=== PATIENT | male | born 2000 | race Caucasian/White ===

== ENCOUNTER 2018-11-08 01:26 | Outpatient (CLI) | payer OTHER | END 2018-11-08 01:27 | disposition critical access hospital (66) | LOC: EMS 01:26 | PROVIDERS: ATTEND Surgery | DX: S09.90XA Unspecified injury of head, initial encounter (principal); R41.82 Altered mental status, unspecified; W18.30XA Fall on same level, unspecified, initial encounter | CPT/HCPCS: A0425; A0427 ==

== ENCOUNTER 2018-11-08 01:42 | Emergency (ER) | payer OTHER ==
--- NOTE | 2018-11-08 02:00 | ED Physician Documentation ---
PD HPI HEAD INJURY - Stated complaint Stated Complaint: head lac, etoh - Chief complaint Chief Complaint: Trauma Hd/Nk - History obtained from History obtained from: Patient, EMS - History of Present Illness Mechanism of head injury: Fell Where head injury occurred: Street (He states he is visiting here for this past week and was out with friends. He does not typically drink every day or even frequently. He had 6 drinks or so and was feeling intoxicated. He does not remember falling down but reportedly from bystanders he lost balance and fell backwards and struck his head. EMS was called and they brought the patient here on a backboard with collar. Patient was awake and conversant on the way. There is no neurologic deficits. 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 No: LOC Symptoms worsen with: Palpation Contributing factors: Intoxicated. No: Anticoagulated Similar symptoms before: Has not had sx before Recently seen: Not recently seen Review of Systems Eyes: denies: Loss of vision, Decreased vision GI: denies: Nausea, Vomiting Musculoskeletal: reports: Neck pain. denies: Back pain Neurologic: reports: Headache (posteriorly at injury site). denies: Focal weakness, Numbness, Confused PD PAST MEDICAL HISTORY - Past Medical History Past Medical History: No - Past Surgical History Past Surgical History: Yes Ortho: ACL reconstruction - Present Medications Home Medications: Ambulatory Orders Medication Instructions Recorded Confirmed No Known Home Medications 11/08/18 11/08/18 - Allergies Allergies/Adverse Reactions: Allergies Allergy/AdvReac Type Severity Reaction Status Date / Time No Known Drug Allergies Allergy Verified 11/08/18 01:50 - Social History Does the pt smoke?: No Smoking Status: Never smoker Does the pt drink ETOH?: Yes Does the pt have substance abuse?: No - Immunizations Immunizations are current?: Yes PD ED PE NORMAL - Vitals Vital signs reviewed: Yes - General General: Alert and oriented X 3 (slight slurring of speech c/w intoxication. Answers questions appropriately. ), No acute distress, Well developed/nourished - HEENT HEENT: PERRL, EOMI, Other ([place] of head with some bleeding/dried blood. No obvious ongoing bleeding. ) - Neck Neck: Supple, no meningeal sign, No adenopathy, Other (mild tenderness mid cervical and left side of neck. No obvious deformity. ) - Cardiac Cardiac: RRR, No murmur - Respiratory Respiratory: Clear bilaterally, Other (no chestwall tendrness) - Abdomen Abdomen: Soft, Non tender - Back Back: No CVA TTP, No spinal TTP (exam with log roll) - Derm Derm: Normal color, Warm and dry - Neuro Neuro: Alert and oriented X 3, No motor deficit, No sensory deficit, Normal speech Eye Opening: Spontaneous Motor: Obeys Commands Verbal: Oriented GCS Score: 15 - Psych Psych: Normal mood Results - Vitals Vitals: Vital Signs - 24 hr 11/08/18 11/08/18 11/08/18 01:45 01:50 03:04 Temperature 37.8 C H Heart Rate 77 77 84 Respiratory 14 16 Rate Blood Pressure 131/88 H 123/80 O2 Saturation 98 99 Oxygen O2 Source Room air - Rads (name of study) cervical spine xray Radiology: Prelim report reviewed (no fractures nor deformities), EMP read contemporaneously, See rad report Procedures - Laceration (location) scalp occipital Length in cm: 1.5 Wound type: Irregular, Into subcut fat, Clean Anesthesia: Lidocaine 1% with epi Wound Preparation: Irrigated copiously NS, Wound explored, To the base. No: FB identified Skin layer closure: Paulette (6 total) PD MEDICAL DECISION MAKING - ED course Complexity details: re-evaluated patient (exam back of head after xrays. ), considered differential, d/w patient Departure - Departure Disposition: 01 Home, Self Care Clinical Impression: Fall from slip, trip, or stumble, Alcohol intoxication, Occipital scalp laceration Condition: Stable Record reviewed to determine appropriate education?: Yes Health Concerns: fall with head laceration Plan of Treatment: wound closure/ wound care Care Goals: wound healing Assessment: scalp laceration that is stapled. Normal neck xrays. No concussive symptoms. Instructions: ED Laceration Scalp Stitch Or Stap Comments: It is okay to wash and shower. Clean off the wound twice a day with soap and water, or peroxide and water. Apply some antibiotic ointment to it to keep it moist. Also to watch for signs of infection such as purulence, redness or increasing pain. Return to your primary care or the ER at the specified time for suture removal. Staple removal 10 to 12 days. Tylenol or ibuprofen as needed for pains. Discharge Date/Time: 11/08/18 03:06
[2018-11-08] MEDS ORDERED: LIDOCAINE MPF 1%-EPI 1:200000 30 ML VIAL SUBQ STA (02:38)
--- NOTE | 2018-11-08 02:48 | XRAY Report ---
Reason: fall and struck back of head; some neck pain Procedure Date: 11/08/2018 Accession Number: [id number] / [id number] Procedure: XR - Cervical Spine 2 View CPT Code: FULL RESULT: EXAM: CERVICAL SPINE RADIOGRAPHY EXAM DATE: 11/08/2018 02:32 AM. CLINICAL HISTORY: Fall and struck back of head; some neck pain. COMPARISONS: None. TECHNIQUE: 3 views. FINDINGS: Alignment: Normal. No spondylolisthesis or scoliosis. Bones: The cervical vertebral bodies and posterior elements are well visualized from the skull base through C7-T1. No fractures or bone lesions. Disks: Normal. Disk heights are maintained. Facets: No degenerative disease. Soft Tissues: Normal. No prevertebral soft tissue swelling. The visualized lung apices are clear. IMPRESSION: Normal cervical spine radiography. RAD[facility]
[2018-11-08] MEDS ORDERED: KETOROLAC 30 MG/ML VIAL IVP STA (02:52)
[2018-11-08 03:04] VITALS: BP 123/80
== END 2018-11-08 03:06 | disposition home or self-care (01) ==
LOC: ED 01:42
DX: S01.01XA Laceration without foreign body of scalp, initial encounter (principal); M54.2 Cervicalgia; W01.10XA Fall on same level from slipping, tripping and stumbling with subsequent striking against unspecified object, initial encounter; Y92.481 Parking lot as the place of occurrence of the external cause; F10.920 Alcohol use, unspecified with intoxication, uncomplicated
CPT/HCPCS: 12001; 72040; 96374; 99283; 99284

== ENCOUNTER 2019-07-10 18:37 | Outpatient (CLI) | payer OTHER | END 2019-07-10 23:59 | disposition critical access hospital (66) | LOC: EMS 18:37 | PROVIDERS: ATTEND Surgery | DX: R56.9 Unspecified convulsions (principal) | CPT/HCPCS: A0425; A0427 ==

== ENCOUNTER 2019-07-10 18:56 | Emergency (ER) | payer OTHER ==
[2019-07-10] MEDS ORDERED: ONDANSETRON 4 MG/2 ML VIAL IVP STA (19:10)
--- NOTE | 2019-07-10 19:13 | ED Physician Documentation ---
PD HPI SEIZURE - Stated complaint Stated Complaint: SZ - Chief complaint Chief Complaint: Neuro - History of Present Illness Timing - onset: How many minutes ago (30) Number of seizures: Single Description of seizure activity: Generalized Injury during seizure: None Associated symptoms: Nausea / vomiting - Additional information Additional information: Brought to the emergency department by EMS after having seizure-like activity at home. Patient's friends state that they were sitting on the couch Playing a video game and the patient suddenly stiffened up and began to twitch and foam at the mouth. The patient turned purple and the friend states he thought the patient had . He called 911 and was instructed to start compressions immediately. Medics state that when they arrived, they found compressions being performed on the patient and the patient awake and looking around. However, he seemed to be post ictal and was not fighting the compressions. The patient has been stable in route. He is now alert and oriented. Patient states that he has never had a seizure before. He did not have febrile seizures as a child. No recent head injury. No recent toxic exposures that he knows of. Patient does note that he did drink fairly heavily yesterday, but has not felt hung over or as though he was withdrawing today. Patient states he is certainly drank alcohol before without any seizures or other withdrawal symptoms. Patient states that he is feeling nauseated now but otherwise without complaints. He remembers sitting on the couch but does not remember feeling any unusual symptoms and does not prior the episode of seizure-like activity. Patient denies any family history of seizures. He has not had any vertigo or other concerning symptoms leading up to this event. No headaches. He states he has a mild headache right now. No other complaints at this time. Review of Systems Ten Systems: 10 systems reviewed and negative Constitutional: reports: Reviewed and negative Eyes: reports: Reviewed and negative Ears: reports: Reviewed and negative Nose: reports: Reviewed and negative Throat: reports: Reviewed and negative Cardiac: reports: Reviewed and negative Respiratory: reports: Reviewed and negative GI: reports: Nausea : reports: Reviewed and negative Skin: reports: Reviewed and negative Musculoskeletal: reports: Reviewed and negative Neurologic: reports: Seizure Psychiatric: reports: Reviewed and negative Endocrine: reports: Reviewed and negative Immunocompromised: reports: Reviewed and negative PD PAST MEDICAL HISTORY - Past Medical History Past Medical History: No Cardiovascular: None Respiratory: None Neuro: None Endocrine/Autoimmune: None GI: None : None HEENT: None Psych: None Musculoskeletal: None Derm: None - Past Surgical History Past Surgical History: Yes Ortho: ACL reconstruction - Present Medications Home Medications: Ambulatory Orders Medication Instructions Recorded Confirmed No Known Home Medications 11/08/18 11/08/18 - Allergies Allergies/Adverse Reactions: Allergies Allergy/AdvReac Type Severity Reaction Status Date / Time No Known Drug Allergies Allergy Verified 11/08/18 01:50 - Social History Does the pt smoke?: No Smoking Status: Never smoker Does the pt drink ETOH?: Yes Does the pt have substance abuse?: No - Immunizations Immunizations are current?: Yes - POLST Patient has POLST: No PD ED PE NORMAL - Vitals Vital signs reviewed: Yes - General General: Alert and oriented X 3, No acute distress - HEENT HEENT: PERRL - Neck Neck: Supple, no meningeal sign - Cardiac Cardiac: RRR, No murmur - Respiratory Respiratory: Clear bilaterally - Abdomen Abdomen: Soft, Non tender, Non distended - Derm Derm: Normal color, Warm and dry - Extremities Extremities: No deformity - Neuro Neuro: Alert and oriented X 3, patient coordinator 2-12 intact, No motor deficit, No sensory deficit - Psych Psych: Normal mood, Normal affect Results - Vitals Vitals: Vital Signs - 24 hr 07/10/19 07/10/19 19:00 20:14 Temperature 37 C Heart Rate 97 91 Respiratory 12 14 Rate Blood Pressure 116/94 H 128/100 H O2 Saturation 98 100 Oxygen O2 Source Room air - Labs Labs: Laboratory Tests 07/10/19 19:38 Urine Opiates Screen NEGATIVE Ur Oxycodone Screen NEGATIVE Urine Methadone Screen NEGATIVE Ur Propoxyphene Screen NEGATIVE Ur Barbiturates Screen NEGATIVE Ur Tricyclics Screen NEGATIVE Ur Phencyclidine Scrn NEGATIVE Ur Amphetamine Screen NEGATIVE U Methamphetamines Scrn NEGATIVE U Benzodiazepines Scrn NEGATIVE Urine Cocaine Screen NEGATIVE U Cannabinoids Screen NEGATIVE - Rads (name of study) CT head Radiology: Final report received, Discussed with rads, EMP read indepedently (Final radiologist impression: Negative nonenhanced head CT.), See rad report PD MEDICAL DECISION MAKING - ED course Complexity details: reviewed old records, reviewed results, re-evaluated patient, considered differential, d/w patient ED course: Patient was given 1 L bolus point and normal saline in the emergency department, as well as Zofran. He was worked up with labs and head CT, as well as urine drug screen. The patient was no longer postictal and was fairly well-appearing. His friends did arrive to be with him and were able to give some of the history, as they did witness the event.The patient remained stable throughout his stay in the emergency department. His work-up was unremarkable. I discussed with him that it is not clear why he has had seizure-like activity tonight. It is possible that this is related to the heavy drinking he did yesterday, though he is not had any other withdrawal symptoms. We have discussed that while this may be a one-time occurrence, it is important to follow-up with his primary care physician and with neurology to discuss having an EEG done. At this point in time, the patient will not be placed on any medications for seizure or otherwise. We have discussed the usual indications for return. Departure - Departure Disposition: 01 Home, Self Care Clinical Impression: Grand mal seizure Condition: Good Instructions: ED Seizure New Onset Unk Cause Comments: Your labs and head CT look good. It is not clear why you had seizure-like activity today. It is possible this is from the heavy drinking that you did yesterday and your body is rebounding from this. However, there may be another cause. It is possible that you will never have a seizure again; however, it is a good idea for you to follow-up with neurology to discuss having an EEG done to study your brain waves and look for possible triggers for future seizure activity. You should also follow-up in primary care to help facilitate this process. If you have further seizures, you will most likely need to be on seizure medication. However, this should be decided by your primary care physician and/or neurologist. You may call [phone] to reach the [facility] in [facility]. Discharge Date/Time: 07/10/19 20:41
[2019-07-10 19:41] LABS: MUDS CUTOFF CONCENTRATIONS CUTOFF CONC BELOW:
[2019-07-10 19:53] LABS: AMPHETAMINE SCREEN,URINE NEGATIVE (NEGATIVE); BENZODIAZEPINES SCREEN, URINE NEGATIVE (NEGATIVE); COCAINE SCREEN URINE NEGATIVE (NEGATIVE); METHADONE SCREEN, URINE NEGATIVE (NEGATIVE); METHAMPHETAMINES SCREEN, URINE NEGATIVE (NEGATIVE); OPIATE SCREEN, URINE NEGATIVE (NEGATIVE); OXYCODONE SCREEN, URINE NEGATIVE (NEGATIVE); PROPOXYPHENE SCREEN, URINE NEGATIVE (NEGATIVE); TRICYCLIC ANTIDEPRESSANT,URINE NEGATIVE (NEGATIVE)
[2019-07-10 20:15] VITALS: BP 128/100
--- NOTE | 2019-07-10 20:18 | CT Report ---
Reason: new-onset sz Procedure Date: 07/10/2019 Accession Number: [id number] / [id number] Procedure: CT - HEAD WO CPT Code: Final Report FULL RESULT: EXAM: CT HEAD EXAM DATE: 07/10/2019 07:47 PM. CLINICAL HISTORY: New-onset of seizure. COMPARISON: None. TECHNIQUE: Multiaxial CT images were obtained from the foramen magnum to the vertex. Reformats: Sagittal and coronal. IV contrast: None. In accordance with CT protocol optimization, one or more of the following dose reduction techniques were utilized for this exam: automated exposure control, adjustment of mA and/or KV based on patient size, or use of iterative reconstructive technique. FINDINGS: Parenchyma: No intraparenchymal hemorrhage. No evidence of mass, midline shift, or CT findings of infarction. Fields-white differentiation is distinct. Extraaxial Spaces: Normal for age. No subdural or epidural collections identified. Ventricles: Normal in size and position. Sinuses and Orbits: Imaged paranasal sinuses, orbits, and mastoids show no significant abnormality. Bones: No evidence of fracture or calvarial defect. Other: None. IMPRESSION: Negative nonenhanced head CT. RADIA
== END 2019-07-10 20:41 | disposition home or self-care (01) ==
LOC: EDUNIT# → ED 18:56
DX: G40.409 Other generalized epilepsy and epileptic syndromes, not intractable, without status epilepticus (principal)
CPT/HCPCS: 70450; 80306; 96374; 99284

== ENCOUNTER 2019-07-17 12:21 | Outpatient (CLI) | payer OTHER | END 2019-07-17 12:22 | disposition critical access hospital (66) | LOC: EMS 12:21 | PROVIDERS: ATTEND Surgery | DX: R56.9 Unspecified convulsions (principal) | CPT/HCPCS: A0425; A0429 ==

== ENCOUNTER 2019-07-17 12:45 | Emergency (ER) | payer OTHER ==
--- NOTE | 2019-07-17 13:01 | ED Physician Documentation ---
PD HPI SEIZURE - Stated complaint Stated Complaint: SZ - History obtained from History obtained from: Patient, EMS - History of Present Illness Timing - onset: Today (19-year-old gentleman with history of a new seizure disorder. Had his first seizure last week. There was a question if it was associated with alcohol. Drug screen at that time and head CT were negative. Had another grand mal seizure today and has recovered completely. It started while playing video games. 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 He is not on any antiepileptics.) Review of Systems Ten Systems: 10 systems reviewed and negative Constitutional: denies: Fever, Chills Throat: denies: Dental pain / toothache, Sore throat Cardiac: denies: Chest pain / pressure, Palpitations Respiratory: denies: Dyspnea, Cough PD PAST MEDICAL HISTORY - Past Medical History Cardiovascular: None Respiratory: None Neuro: None Endocrine/Autoimmune: None GI: None : None HEENT: None Psych: None Musculoskeletal: None Derm: None - Past Surgical History Past Surgical History: Yes Ortho: ACL reconstruction - Present Medications Home Medications: Ambulatory Orders Medication Instructions Recorded Confirmed Levetiracetam [Keppra] 750 mg PO BID #60 tablet 07/17/19 - Allergies Allergies/Adverse Reactions: Allergies Allergy/AdvReac Type Severity Reaction Status Date / Time No Known Drug Allergies Allergy Verified 11/08/18 01:50 - Social History Does the pt smoke?: No Smoking Status: Never smoker Does the pt drink ETOH?: Yes Does the pt have substance abuse?: No - Immunizations Immunizations are current?: Yes - POLST Patient has POLST: No PD ED PE NORMAL - Vitals Vital signs reviewed: Yes - General General: Alert and oriented X 3, No acute distress - HEENT HEENT: PERRL, EOMI, Other (There is a small abrasion on the right side of the tongue without other evidence of head injury.) - Neck Neck: Supple, no meningeal sign, No bony TTP - Cardiac Cardiac: RRR, No murmur - Respiratory Respiratory: No respiratory distress, Clear bilaterally - Abdomen Abdomen: Normal bowel sounds, Soft, Non tender - Back Back: No CVA TTP, No spinal TTP - Derm Derm: Normal color, Warm and dry - Extremities Extremities: No edema, No calf tenderness / cord - Neuro Neuro: Alert and oriented X 3, news assistant 2-12 intact, No motor deficit, No sensory deficit, Normal speech Results - Vitals Vitals: Vital Signs - 24 hr 07/17/19 12:50 Temperature 36.8 C Heart Rate 95 Respiratory 18 Rate Blood Pressure 124/87 H O2 Saturation 98 Oxygen O2 Source Room air - EKG (time done) 1314 Rate: Rate (enter#) (93) Rhythm: NSR [place]: Normal Intervals: Normal [place]. No: Prolonged QT QRS: Normal Ischemia: ST elevation c/w repol. No: ST elevation c/w ischemia, ST depression Computer interpretation: Agree with computer - Labs Labs: Laboratory Tests 07/17/19 07/17/19 13:18 13:18 WBC 9.8 RBC 5.06 Hgb 16.9 Hct 47.1 MCV 93.1 MCH 33.4 H MCHC 35.9 RDW 12.1 Plt Count 298 MPV 10.1 Neut # (Auto) 7.3 H Lymph # (Auto) 1.2 L [place] # (Auto) 0.8 Eos # (Auto) 0.3 Baso # (Auto) 0.1 Absolute Nucleated RBC 0.00 Nucleated RBC % 0.0 Sodium 134 L Potassium 4.3 Chloride 100 L Carbon Dioxide 23 Anion Gap 11.0 BUN 14 Creatinine 0.9 Estimated GFR (MDRD) 107 Glucose 83 Calcium 9.6 Total Bilirubin 0.9 AST 42 ALT 32 Alkaline Phosphatase 70 Total Protein 8.3 H Albumin 5.1 Globulin 3.2 Albumin/Globulin Ratio 1.6 Lipase 27 Ethyl Alcohol < 5.0 PD MEDICAL DECISION MAKING - ED course ED course: 19-year-old gentleman with a second seizure in as many weeks. Case was discussed by phone with the on-call neurologist at the [facility]. She recommended starting 750 mg of Keppra twice daily pending follow-up. Departure - Departure Disposition: 01 Home, Self Care Clinical Impression: Grand mal seizure Condition: Good Record reviewed to determine appropriate education?: Yes Instructions: ED Seizure Recurrent Prescriptions: Levetiracetam [Keppra] 750 mg PO BID #60 tablet Comments: The on-call neurologist at the [facility] recommended starting the seizure medication pending your follow-up next week. Return for new or worsening symptoms. No driving for at least 6 months.
[2019-07-17 13:02] VITALS: BP 124/87
[2019-07-17 13:40] LABS: BASOPHILS # (AUTO) 0.1 10^3/uL (0.0-0.1); BASOPHILS % (AUTO) 0.6 %; EOSINOPHILS # (AUTO) 0.3 10^3/uL (0.0-0.7); EOSINOPHILS % (AUTO) 2.7 %; HGB - HEMOGLOBIN 16.9 g/dL (14.0-18.0); LYMPHOCYTES # (AUTO) 1.2 10^3/uL (1.5-3.5); LYMPHOCYTES % (AUTO) 12.5 %; MEAN CORPUSCULAR HEMOGLOBIN 33.4 pg (27.0-31.0); MEAN CORPUSCULAR HGB CONC 35.9 g/dL (32.0-36.0); MEAN CORPUSCULAR VOLUME 93.1 fL (80.0-94.0); MEAN PLATELET VOLUME 10.1 fL (7.4-11.4); MONOCYTES # (AUTO) 0.8 10^3/uL (0.0-1.0); NEUTROPHILS # (AUTO) 7.3 10^3/uL (1.5-6.6); NEUTROPHILS % (AUTO) 74.9 %; PLT - PLATELET COUNT 298 10^3/uL (130-450); RED BLOOD COUNT 5.06 10^6/uL (4.70-6.10); RED CELL DISTRIBUTION WIDTH 12.1 % (12.0-15.0); WHITE BLOOD COUNT 9.8 x10^3/uL (4.8-10.8)
[2019-07-17 13:46] LABS: ALBUMIN 5.1 g/dL (3.2-5.5); ALBUMIN/GLOBULIN RATIO 1.6 (1.0-2.2); ALKALINE PHOSPHATASE 70 IU/L (42-121); ALT ALANINE AMINOTRANSFERASE 32 IU/L (10-60); AST ASPARTATE AMINOTRANSFERASE 42 IU/L (10-42); BILIRUBIN,TOTAL 0.9 mg/dL (0.2-1.0); BUN - BLOOD UREA NITROGEN 14 mg/dL (6-20); CALCIUM 9.6 mg/dL (8.5-10.3); CARBON DIOXIDE - CO2 23 mmol/L (21-32); CHLORIDE 100 mmol/L (101-111); CREATININE 0.9 mg/dL (0.6-1.2); GFR - MDRD 107 (>89); GLUCOSE 83 mg/dL (70-100); LIPASE 27 U/L (22-51); SODIUM 134 mmol/L (135-145); TOTAL PROTEIN 8.3 g/dL (6.7-8.2)
== END 2019-07-17 14:49 | disposition home or self-care (01) ==
LOC: EDUNIT# → ED 12:45
DX: G40.409 Other generalized epilepsy and epileptic syndromes, not intractable, without status epilepticus (principal)
CPT/HCPCS: 36415; 80053; 80320; 83690; 85025; 93005; 99283; 99285

== ENCOUNTER 2019-08-28 14:22 | Outpatient (CLI) | payer OTHER | END 2019-08-28 14:23 | disposition EMS.NT | LOC: EMS 14:22 | PROVIDERS: ATTEND Surgery | DX: R56.9 Unspecified convulsions (principal) ==

== ENCOUNTER 2019-08-28 15:18 | Emergency (ER) | payer OTHER ==
[2019-08-28 15:24] VITALS: BP 120/74
--- NOTE | 2019-08-28 15:31 | ED Physician Documentation ---
PD HPI FOCAL NEURO - Stated complaint Stated Complaint: SEIZURE - Chief complaint Chief Complaint: Neuro - History obtained from History obtained from: Patient (19-year-old gentleman with recent onset of a new seizure disorder. His first seizure was just a couple of months ago. He was seen twice after that and had an appointment with a neurologist. On his last visit here which was about a month and a half ago he was started on Keppra 750 mg twice a day after talking with his neurologist. While he was taking that he will did not have any seizures but ran out of the medication about 2 weeks ago. He had not been able to follow-up with the neurologist physically because of the coronavirus issues. Today he had a seizure while playing video games. He has not been driving and understands he should not drive) Review of Systems Constitutional: denies: Fever, Chills Nose: denies: Rhinorrhea / runny nose Throat: denies: Sore throat Cardiac: denies: Chest pain / pressure, Palpitations Respiratory: denies: Dyspnea PD PAST MEDICAL HISTORY - Past Medical History Cardiovascular: None Respiratory: None Neuro: None Endocrine/Autoimmune: None GI: None : None HEENT: None Psych: None Musculoskeletal: None Derm: None - Past Surgical History Past Surgical History: Yes Ortho: ACL reconstruction - Present Medications Home Medications: Ambulatory Orders Medication Instructions Recorded Confirmed Levetiracetam [Keppra] 750 mg PO BID #60 tablet 07/17/19 Levetiracetam [Keppra] 750 mg PO BID #120 tablet 08/28/19 - Allergies Allergies/Adverse Reactions: Allergies Allergy/AdvReac Type Severity Reaction Status Date / Time No Known Drug Allergies Allergy Verified 08/28/19 15:24 - Social History Does the pt smoke?: No Smoking Status: Never smoker Does the pt drink ETOH?: Yes Does the pt have substance abuse?: No - Immunizations Immunizations are current?: Yes - POLST Patient has POLST: No PD ED PE NORMAL - Vitals Vital signs reviewed: Yes - General General: Alert and oriented X 3, No acute distress - HEENT HEENT: PERRL, EOMI - Neuro Neuro: Alert and oriented X 3, 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 2-12 intact, No motor deficit, No sensory deficit, Normal speech - Psych Psych: Normal mood, Normal affect Results - Vitals Vitals: Vital Signs - 24 hr 08/28/19 15:20 Temperature 37 C Heart Rate 105 H Respiratory 18 Rate Blood Pressure 120/74 O2 Saturation 97 Oxygen O2 Source Room air PD MEDICAL DECISION MAKING - ED course Complexity details: reviewed old records (Note made that he did have a head CT here about a little over a month and a half ago which was unremarkable.) ED course: This is a young man with a known seizure disorder is being controlled with Keppra but ran out and has poor access to follow-up due to the coronavirus epidemic. His Keppra is refilled for 2 months since we do not know when he will be able to see his neurologist. Departure - Departure Disposition: Home, Self Care Clinical Impression: Grand mal seizure Condition: Good Record reviewed to determine appropriate education?: Yes Instructions: ED Seizure New Onset Unk Cause Prescriptions: Levetiracetam [Keppra] 750 mg PO BID #120 tablet Comments: It is imperative to get a good night sleep every night, you cannot drive until 6 months of past seizure-free or neurologist has cleared you to do so. Continue your efforts to try to follow-up with the neurologist. That said if you are getting close to running out of the antiseizure medication can [place] a [place] Return for new or worsening symptoms.
[2019-08-28] MEDS: levETIRAcetam 250 MG TABLET PO STA (15:34)
== END 2019-08-28 15:45 | disposition home or self-care (01) ==
LOC: ED 15:18
DX: G40.409 Other generalized epilepsy and epileptic syndromes, not intractable, without status epilepticus (principal); T42.6X6A Underdosing of other antiepileptic and sedative-hypnotic drugs, initial encounter; Z91.138 Patient's unintentional underdosing of medication regimen for other reason
CPT/HCPCS: 99282; 99283; A9270

== ENCOUNTER 2019-11-20 10:27 | Emergency (ER) | payer OTHER ==
--- NOTE | 2019-11-20 14:12 | ED Physician Documentation ---
PD HPI SEIZURE - Stated complaint Stated Complaint: SEIZURE - Chief complaint Chief Complaint: Neuro - History obtained from History obtained from: Patient, Family - History of Present Illness Witnessed: Unwitnessed Number of seizures: Single, Lasted minutes Description of seizure activity: Generalized Injury during seizure: None Associated symptoms: None History of seizures: Known seizure disorder Contributing factors: No: Off meds, Out of meds, Changed meds, Low blood sugar, Head injury, Substance abuse, EtOH withdrawal, Benzo withdrawal, Overdose, Fever, Sleep deprivation Similar symptoms before: Diagnosis (seizure) Recently seen: Not recently seen - Additional information Additional information: 19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 He states that he did not feel quite right earlier in the day about a half an hour before that happened but he did not have a specific aura. He did not injure himself when this occurred he is fairly certain he had a seizure because she has a lapse in memory and found himself on the floor. He states that he has had 3 other seizures and he has been on Keppra and states he has been taking his medicine. He did go in to see a neurologist after having a seizure and he has not been in for his follow-up EEG. He denies any current illness he denies any sleep deprivation or excessive stress at work. Review of Systems Constitutional: denies: Fever Eyes: denies: Decreased vision Ears: denies: Ear pain Nose: denies: Rhinorrhea / runny nose, Congestion Throat: denies: Sore throat Cardiac: denies: Chest pain / pressure, Palpitations Respiratory: denies: Dyspnea, Cough GI: denies: Vomiting : denies: Dysuria PD PAST MEDICAL HISTORY - Past Medical History Cardiovascular: None Respiratory: None Neuro: None Endocrine/Autoimmune: None GI: None : None HEENT: None Psych: None Musculoskeletal: None Derm: None - Past Surgical History Past Surgical History: Yes Ortho: ACL reconstruction - Present Medications Home Medications: Ambulatory Orders Medication Instructions Recorded Confirmed Levetiracetam [Keppra] 750 mg PO BID #60 tablet 07/17/19 Levetiracetam [Keppra] 750 mg PO BID #120 tablet 08/28/19 - Allergies Allergies/Adverse Reactions: Allergies Allergy/AdvReac Type Severity Reaction Status Date / Time No Known Drug Allergies Allergy Verified 08/28/19 15:24 - Social History Does the pt smoke?: No Smoking Status: Never smoker Does the pt drink ETOH?: Yes Does the pt have substance abuse?: No - Immunizations Immunizations are current?: Yes - POLST Patient has POLST: No PD ED PE NORMAL - Vitals Vital signs reviewed: Yes (tachy) - General General: Alert and oriented X 3, No acute distress, Well developed/nourished - HEENT HEENT: Atraumatic, PERRL, EOMI, Pharynx benign - Neck Neck: Supple, no meningeal sign, No bony TTP - Cardiac Cardiac: RRR, No murmur - Respiratory Respiratory: No respiratory distress, Clear bilaterally - Back Back: No CVA TTP, No spinal TTP - Derm Derm: Normal color, Warm and dry, No rash - Extremities Extremities: No deformity, No edema, No calf tenderness / cord - Neuro Neuro: Alert and oriented X 3, button and 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 maker 2-12 intact, No motor deficit, No sensory deficit, Normal speech Eye Opening: Spontaneous Motor: Obeys Commands Verbal: Oriented GCS Score: 15 - Psych Psych: Normal mood, Normal affect Results - Vitals Vitals: Vital Signs - 24 hr 11/20/19 11/20/19 11/20/19 10:31 14:00 16:00 Temperature 36.9 C Heart Rate 107 H 69 73 Respiratory 16 20 20 Rate Blood Pressure 127/91 H 124/89 H 113/61 O2 Saturation 100 99 99 11/20/19 16:29 Temperature 37.1 C Heart Rate 70 Respiratory 18 Rate Blood Pressure 122/75 O2 Saturation 100 Oxygen O2 Source Room air - Labs Labs: Laboratory Tests 11/20/19 11/20/19 11/20/19 14:27 14:27 14:31 WBC 14.8 H RBC 4.92 Hgb 16.3 Hct 45.3 MCV 92.1 MCH 33.1 H MCHC 36.0 RDW 11.8 L Plt Count 285 MPV 9.6 Neut # (Auto) 12.6 H Lymph # (Auto) 1.2 L [place] # (Auto) 0.9 Eos # (Auto) 0.0 Baso # (Auto) 0.1 Absolute Nucleated RBC 0.00 Nucleated RBC % 0.0 Sodium Potassium Chloride Carbon Dioxide Anion Gap BUN Creatinine Estimated GFR (MDRD) Glucose Calcium Total Bilirubin AST ALT Alkaline Phosphatase Total Creatine Kinase Total Protein Albumin Globulin Albumin/Globulin Ratio Lipase Urine Color YELLOW Urine Clarity CLOUDY Urine pH 5.5 Ur Specific [place] >=1.030 H Urine Protein NEGATIVE Urine Glucose (UA) NEGATIVE Urine Ketones NEGATIVE Urine Occult Blood NEGATIVE Urine Nitrite NEGATIVE Urine Bilirubin NEGATIVE Urine Urobilinogen 0.2 (NORMAL) Ur Leukocyte Esterase NEGATIVE Urine RBC 0-5 Urine WBC 0-3 Ur Squamous Epith Cells NONE SEEN Amorphous Sediment Marked Urine Bacteria None Seen Ur Microscopic Review INDICATED Urine Culture Comments NOT INDICATED Urine Opiates Screen NEGATIVE Ur Oxycodone Screen NEGATIVE Urine Methadone Screen NEGATIVE Ur Propoxyphene Screen NEGATIVE Ur Barbiturates Screen NEGATIVE Ur Tricyclics Screen NEGATIVE Ur Phencyclidine Scrn NEGATIVE Ur Amphetamine Screen NEGATIVE U Methamphetamines Scrn NEGATIVE U Benzodiazepines Scrn NEGATIVE Urine Cocaine Screen NEGATIVE U Cannabinoids Screen NEGATIVE 11/20/19 14:31 WBC RBC Hgb Hct MCV MCH MCHC RDW Plt Count MPV Neut # (Auto) Lymph # (Auto) [place] # (Auto) Eos # (Auto) Baso # (Auto) Absolute Nucleated RBC Nucleated RBC % Sodium 139 Potassium 4.0 Chloride 102 Carbon Dioxide 27 Anion Gap 10.0 BUN 16 Creatinine 1.0 Estimated GFR (MDRD) 94 Glucose 95 Calcium 9.5 Total Bilirubin 1.0 AST 25 ALT 22 Alkaline Phosphatase 77 Total Creatine Kinase 192 Total Protein 8.1 Albumin 5.4 Globulin 2.7 Albumin/Globulin Ratio 2.0 Lipase 26 Urine Color Urine Clarity Urine pH Ur Specific [place] Urine Protein Urine Glucose (UA) Urine Ketones Urine Occult Blood Urine Nitrite Urine Bilirubin Urine Urobilinogen Ur Leukocyte Esterase Urine RBC Urine WBC Ur Squamous Epith Cells Amorphous Sediment Urine Bacteria Ur Microscopic Review Urine Culture Comments Urine Opiates Screen Ur Oxycodone Screen Urine Methadone Screen Ur Propoxyphene Screen Ur Barbiturates Screen Ur Tricyclics Screen Ur Phencyclidine Scrn Ur Amphetamine Screen U Methamphetamines Scrn U Benzodiazepines Scrn Urine Cocaine Screen U Cannabinoids Screen PD MEDICAL DECISION MAKING - ED course Complexity details: reviewed old records, reviewed results, re-evaluated patient, considered differential, d/w patient, d/w family ED course: 19-year-old male has had another seizure and there are no obvious precipitants to this. He denies any infection sleep deprivation trauma and on physical exam no specific findings. I question the patient about his alcohol use and he does indicate that he did use alcohol and that he had been using alcohol quite a bit before his first seizure and I have asked him to explore the possibility of alcohol withdrawal seizure as a potential for his seizure disorder. I have asked him to share openly with his neurologist his alcohol use. Today we will not make changes to the patient's plan. Departure - Departure Disposition: 01 Home, Self Care Clinical Impression: Seizure Condition: Stable Instructions: ED Seizure Recurrent Follow-Up: Aruna García MD [Primary Care Provider] - Discharge Date/Time: 11/20/19 16:29
[2019-11-20 14:41] LABS: BASOPHILS # (AUTO) 0.1 10^3/uL (0.0-0.1); BASOPHILS % (AUTO) 0.3 %; EOSINOPHILS % (AUTO) 0.3 %; HGB - HEMOGLOBIN 16.3 g/dL (14.0-18.0); LYMPHOCYTES # (AUTO) 1.2 10^3/uL (1.5-3.5); LYMPHOCYTES % (AUTO) 8.2 %; MEAN CORPUSCULAR HEMOGLOBIN 33.1 pg (27.0-31.0); MEAN CORPUSCULAR VOLUME 92.1 fL (80.0-94.0); MEAN PLATELET VOLUME 9.6 fL (7.4-11.4); MONOCYTES # (AUTO) 0.9 10^3/uL (0.0-1.0); MONOCYTES % (AUTO) 5.8 %; NEUTROPHILS # (AUTO) 12.6 10^3/uL (1.5-6.6); NEUTROPHILS % (AUTO) 84.8 %; PLT - PLATELET COUNT 285 10^3/uL (130-450); RED BLOOD COUNT 4.92 10^6/uL (4.70-6.10); RED CELL DISTRIBUTION WIDTH 11.8 % (12.0-15.0); WHITE BLOOD COUNT 14.8 x10^3/uL (4.8-10.8)
[2019-11-20 14:56] LABS: ALBUMIN 5.4 g/dL (3.2-5.5); CALCIUM 9.5 mg/dL (8.5-10.3); TOTAL PROTEIN 8.1 g/dL (6.7-8.2)
[2019-11-20 15:40] LABS: BILIRUBIN,URINE NEGATIVE (NEGATIVE); GLUCOSE, URINE (UA) NEGATIVE (NEGATIVE); KETONES,URINE (UA) NEGATIVE (NEGATIVE); LEUKOCYTE ESTERASE, URINE NEGATIVE (NEGATIVE); NITRITE,URINE NEGATIVE (NEGATIVE); OCCULT BLOOD,URINE NEGATIVE (NEGATIVE); PH,URINE 5.5 PH (5.0-7.5); PROTEIN,URINE NEGATIVE (NEGATIVE); UROBILINOGEN,URINE 0.2 (NORMAL) E.U./dL (NORMAL)
[2019-11-20 15:45] LABS: CLARITY,URINE CLOUDY (CLEAR)
[2019-11-20 15:46] LABS: AMORPHOUS SEDIMENT,UR Marked /LPF; BACTERIA,URINE None Seen /HPF (None Seen); RBC,URINE 0-5 /HPF (0-5); SQUAMOUS EPITHELIAL CELL,UR NONE SEEN (<= Few)
[2019-11-20 15:57] LABS: MUDS CUTOFF CONCENTRATIONS CUTOFF CONC BELOW:
[2019-11-20 16:10] LABS: AMPHETAMINE SCREEN,URINE NEGATIVE (NEGATIVE); BENZODIAZEPINES SCREEN, URINE NEGATIVE (NEGATIVE); COCAINE SCREEN URINE NEGATIVE (NEGATIVE); METHADONE SCREEN, URINE NEGATIVE (NEGATIVE); METHAMPHETAMINES SCREEN, URINE NEGATIVE (NEGATIVE); OPIATE SCREEN, URINE NEGATIVE (NEGATIVE); OXYCODONE SCREEN, URINE NEGATIVE (NEGATIVE); PROPOXYPHENE SCREEN, URINE NEGATIVE (NEGATIVE); TRICYCLIC ANTIDEPRESSANT,URINE NEGATIVE (NEGATIVE)
[2019-11-20 16:30] VITALS: BP 122/75
== END 2019-11-20 16:29 | disposition home or self-care (01) ==
LOC: ED 10:27
DX: G40.909 Epilepsy, unspecified, not intractable, without status epilepticus (principal)
CPT/HCPCS: 36415; 80053; 80177; 80306; 81001; 81003; 82550; 83690; 85025; 87086; 99283; 99284

== ENCOUNTER 2020-01-15 11:29 | Outpatient (CLI) | payer OTHER | END 2020-01-15 11:30 | disposition critical access hospital (66) | LOC: EMS 11:29 | PROVIDERS: ATTEND Surgery | DX: R56.9 Unspecified convulsions (principal) | CPT/HCPCS: A0425; A0427 ==

== ENCOUNTER 2020-01-15 11:59 | Emergency (ER) | payer OTHER ==
--- NOTE | 2020-01-15 12:32 | ED Physician Documentation ---
PD HPI SEIZURE - Stated complaint Stated Complaint: SZ - Chief complaint Chief Complaint: Neuro - History obtained from History obtained from: Patient, EMS - History of Present Illness Timing - onset: Today Witnessed: Witnessed Number of seizures: Single, Lasted - seconds (30) Description of seizure activity: Generalized, Tonic clonic Injury during seizure: None Pain level max: 0 Pain level now: 0 Associated symptoms: None. No: Headache, Vision changes, Chest pain, Palpitations, Diaphoresis, Dyspnea, Nausea / vomiting History of seizures: Known seizure disorder - Additional information Additional information: patient with known seizure disorder, takes keppra 500mg PO BID. Sees neurology at [facility]. No missed doses. Still has seizures approx 1x per month. No recent illness. No sleep deprivation. No fevers. Nothing makes it better or worse. Review of Systems Ten Systems: 10 systems reviewed and negative Constitutional: denies: Fever, Chills Nose: denies: Rhinorrhea / runny nose, Congestion Respiratory: denies: Cough GI: reports: Vomiting (after the seizure had emesis. now feels normal.). denies: Nausea, Diarrhea : denies: Dysuria Skin: denies: Rash Musculoskeletal: denies: Neck pain, Back pain Neurologic: denies: Headache, Head injury PD PAST MEDICAL HISTORY - Past Medical History Cardiovascular: None Respiratory: None Neuro: None Endocrine/Autoimmune: None GI: None : None HEENT: None Psych: None Musculoskeletal: None Derm: None - Past Surgical History Past Surgical History: Yes Ortho: ACL reconstruction - Present Medications Home Medications: Ambulatory Orders Medication Instructions Recorded Confirmed Levetiracetam [Keppra] 500 mg PO BID 01/15/20 01/15/20 Levetiracetam [Keppra] 750 mg PO BID #60 tablet 01/15/20 - Allergies Allergies/Adverse Reactions: Allergies Allergy/AdvReac Type Severity Reaction Status Date / Time No Known Drug Allergies Allergy Verified 08/28/19 15:24 - Social History Does the pt smoke?: No Smoking Status: Never smoker Does the pt drink ETOH?: Yes Does the pt have substance abuse?: No - Immunizations Immunizations are current?: Yes - POLST Patient has POLST: No PD ED PE NORMAL - Vitals Vital signs reviewed: Yes - General General: Alert and oriented X 3, No acute distress - HEENT HEENT: Moist mucous membranes - Neck Neck: Supple, no meningeal sign - Cardiac Cardiac: RRR - Respiratory Respiratory: No respiratory distress, Clear bilaterally - Derm Derm: Warm and dry - Extremities Extremities: No deformity, No edema, No calf tenderness / cord - Neuro Neuro: Alert and oriented X 3, record systems analyst 2-12 intact, No motor deficit, No sensory deficit, Normal speech - Psych Psych: Normal mood, Normal affect Results - Vitals Vitals: Vital Signs - 24 hr 01/15/20 12:05 Temperature 36.7 C Heart Rate 88 Respiratory 14 Rate Blood Pressure 126/79 O2 Saturation 97 Oxygen O2 Source Room air PD MEDICAL DECISION MAKING - ED course Complexity details: considered differential, d/w patient ED course: With a known recurrent seizure disorder. He is only on Keppra 500 mg twice a day. Increase this to 750 twice a day, will likely need to be increased further. [place]. Patient counseled regarding signs and symptoms for which I believe and urgent re-evaluation would be necessary. Patient with good understanding of and agreement to plan and is comfortable going home at this time This document was made in part using voice recognition software. While efforts are made to proofread this document, sound alike and grammatical errors may occur. No injuries. No indication for lab work at this time Departure - Departure Disposition: 01 Home, Self Care Clinical Impression: Seizure Condition: Good Instructions: ED Seizure Recurrent Follow-Up: LAURIE Jay [Provider Group] - Within 3 Days Prescriptions: Levetiracetam [Keppra] 750 mg PO BID #60 tablet Comments: We will increase your keppra to 750mg twice a day. Follow up with your doctor t his week, they may want to increase your keppra again in 2 weeks to 1000mg twice a day. Return if you worsen.
[2020-01-15 12:55] VITALS: BP 129/78
== END 2020-01-15 13:28 | disposition home or self-care (01) ==
LOC: ED 11:59
DX: R56.9 Unspecified convulsions (principal)
CPT/HCPCS: 99282; 99284

== ENCOUNTER 2020-02-02 16:41 | Outpatient (CLI) | payer OTHER ==
--- NOTE | 2020-02-02 18:12 | MRI Report ---
PROCEDURE: Brain W/WO INDICATIONS: SEIZURE, ALTERED MENTAL STATUS CONTRAST: IV CONTRAST: Gadavist ml: 7 TECHNIQUE: Noncontrast axial T1 spin echo, axial T2 fast spin echo, sagittal and axial FLAIR, coronal T2 fast sp in echo, axial gradient echo, axial diffusion and ADC through the brain. In this patient, thin secti on T2-weighted images were performed through the hippocampal regions. After the administration of con trast, axial and coronal T1 spin echo with fat saturation through the brain. COMPARISON: Correlation is made with prior CT 07/10/2019 FINDINGS: Image quality: Excellent. CSF spaces: Basal cisterns are patent. No extra-axial fluid collections. Ventricles are normal in size and shape. Brain: No midline shift. No intracranial bleeds or masses. No abnormal intracranial enhancement. There is cerebral volume loss for age. There is periventricular white matter chronic small vessel is chemic change. The brainstem appears normal. Diffusion-weighted images demonstrate no acute ischemi c insults. No chronic ischemic insults. Normal intravascular flow voids are present. Incidental no te is made of a cavum of septum pellucidum. This is of likely no clinical consequence, when incidenta lly discovered in isolation. In this patient with this given history, scrutiny is given to the hippocampal regions. The hippocampi demonstrate a normal, symmetric appearance. Skull and face: Calvarial marrow is normal in signal. Orbits appear normal. Sinuses: Sinuses and mastoids appear clear. IMPRESSION: A cause of seizures is not identified. Unremarkable, symmetric hippocampi. No masses or abnormal enhancement can be seen. No findings of acute or subacute infarction are seen. Reviewed by: Bruno Benton MD on 02/02/2020 5:10 PM [id number] Approved by: Bruno Benton MD on 02/02/2020 5:10 PM [id number] Station ID: [id number]
== END 2020-02-02 16:42 | disposition home or self-care (01) ==
LOC: DI 16:41
DX: R41.82 Altered mental status, unspecified (principal)
CPT/HCPCS: 70553; A9585

== ENCOUNTER 2020-08-09 13:22 | Emergency (ER) | payer OTHER ==
[2020-08-09 14:18] VITALS: BP 142/112
--- OUTSIDE RECORDS SUMMARY | 2020-08-16 00:03 | EXTERNAL MEDICAL SUMMARY RPT | Continuity of Care Document ---
:2000 Demographics Phone Unavailable Preferred Language Unknown Marital Status Unknown Rastafari Affiliation Unknown Race Unknown Ethnic Group Unknown Author Organization [facility] Address [address] [place] [address] Phone Social History date description facility [id number]
== END 2020-08-09 15:18 | disposition left against medical advice (07) ==
LOC: ED 13:22
DX: Z53.21 Procedure and treatment not carried out due to patient leaving prior to being seen by health care provider (principal)